=== PATIENT | female | born 1980 | race Two or more races ===

== ENCOUNTER 2017-08-14 06:34 | Emergency (ER) | payer OTHER ==
[~2017-08-14] VITALS: Ht 152.4 cm; Wt 43.5 kg
[2017-08-14] MEDS ORDERED: ARMOUR THYROID90 MG (06:47)
== END 2017-08-14 12:06 | disposition home or self-care (01) ==
LOC: ER 06:34
DX: B34.9 Viral infection, unspecified (principal); N17.9 Acute kidney failure, unspecified